=== PATIENT | male | born 1965 | race Caucasian/White ===

== ENCOUNTER → 2017-12-26 | Outpatient (CLI) | payer BC | LOC: CAT 09:35 | DX: R10.31 Right lower quadrant pain (principal) ==

== ENCOUNTER → 2018-11-07 | Outpatient (CLI) | payer OTHER | LOC: CAT 08:26 | DX: Z13.6 Encounter for screening for cardiovascular disorders (principal); E78.00 Pure hypercholesterolemia, unspecified ==

== ENCOUNTER → 2018-11-07 | Outpatient (CLI) | payer BC | LOC: ULTRA 08:36 | DX: R94.5 Abnormal results of liver function studies (principal); R10.9 Unspecified abdominal pain ==

== ENCOUNTER → 2021-02-15 | Outpatient (CLI) | payer OTHER | LOC: CAT 08:30 | PROVIDERS: ATTEND Family Medicine | DX: K76.0 Fatty (change of) liver, not elsewhere classified (principal); I70.0 Atherosclerosis of aorta ==